=== PATIENT | female | born 1980 | race Caucasian/White ===

== ENCOUNTER 2021-02-20 11:08 | Day surgery (SDC) | payer OTHER ==
[2021-02-20 11:35] LABS: HCG UR QUAL NEGATIVE
[2021-02-20] MEDS ORDERED: LACTATED RINGERS 1,000 ML IV ONE ×4 (11:44→13:57)
[2021-02-20] MEDS ORDERED: fentaNYL 250 MCG/5 ML VIAL ONE (12:46)
[2021-02-20] MEDS ORDERED: MIDAZOLAM 2 MG/2 ML VIAL ONE ×2 (12:46→13:18)
[2021-02-20] MEDS ORDERED: ONDANSETRON 4 MG/2 ML VIAL ONE (13:54)
[2021-02-20 14:16] VITALS: BP 94/79
== END 2021-02-20 11:09 | disposition home or self-care (01) ==
LOC: SDS 11:08
PROVIDERS: ATTEND Surgery
PROC: 0DBE8ZX Excision of Large Intestine, Via Natural or Artificial Opening Endoscopic, Diagnostic (ICD-10-PCS; principal; 2021-02-20 12:15)
DX: K59.09 Other constipation (principal); K64.8 Other hemorrhoids; K57.30 Diverticulosis of large intestine without perforation or abscess without bleeding; K64.4 Residual hemorrhoidal skin tags; Q43.8 Other specified congenital malformations of intestine
CPT/HCPCS: 45380; 81025; J3010; J7120